=== PATIENT | male | born 1965 | race Caucasian/White ===

== ENCOUNTER 2023-03-12 16:16 | Inpatient (IN) | payer BC ==
[~2023-03-12] VITALS: Ht 182.9 cm; Wt 112.1 kg
[2023-03-12] MEDS ORDERED: PRED5TA PO (16:47)
[2023-03-12] MEDS ORDERED: OXYC10TA12 PO (16:47)
[2023-03-12] MEDS ORDERED: OMEP-173 PO (16:47)
[2023-03-12] MEDS ORDERED: ROSU10TA6 PO (16:47)
[2023-03-12] MEDS ORDERED: MAGN400C PO (16:47)
[2023-03-12] MEDS ORDERED: VITA200016 PO (16:47)
[2023-03-12] MEDS ORDERED: CALC-190 PO (16:47)
[2023-03-12] MEDS ORDERED: GABA-283 PO (16:47)
[2023-03-12] MEDS ORDERED: MORP-69 PO (16:47)
[2023-03-12] MEDS: predniSONE 5 MG TAB PO SCH (17:00)
[2023-03-12 17:17] LABS: VENOUS BASE EXCESS -2.4 (-2.0-2.0); VENOUS HCO3 21.6 MMOL/L (23.0-27.0); VENOUS O2 SATURATION 72.9 % (60.0-80.0); VENOUS PARTIAL PRESSURE CO2 33.4 mmHg (38.0-50.0); VENOUS PARTIAL PRESSURE O2 38.4 mmHg (30.0-50.0); VENOUS PH 7.429 UNITS (7.330-7.430); VENOUS STANDARD HCO3 22.2 MMOL/L; VENOUS TOTAL CO2 22.6 MMOL/L (24.0-28.0)
[2023-03-12 17:22] LABS: MEAN CORPUSCULAR HEMOGLOBIN 31.4 pg (27.0-33.0); MEAN CORPUSCULAR VOLUME 98.1 fl (80.0-96.0); PLATELET COUNT, AUTOMATED 148 10^3/uL (150-450); RED BLOOD COUNT 2.07 10^6/uL (4.30-6.10)
[2023-03-12 17:24] LABS: HEMATOCRIT 20.3 % (42.0-52.0); HEMOGLOBIN 6.5 g/dl (13.5-17.5)
[2023-03-12 17:35] LABS: LYMPHOCYTES 2 % (16-44); METAMYELOCYTES 2 % (0-0); MONOCYTES 4 % (0-5); MYELOCYTES 2 % (0-0); NEUTROPHILS 87 % (28-66)
[2023-03-12] MEDS ORDERED: NS 500 ML IV ONE (17:35)
[2023-03-12 17:36] LABS: ANISOCYTOSIS 1+; PLATELET ESTIMATE DECREASED (NORMAL)
[2023-03-12 17:37] LABS: POLYCHROMASIA 1+
[2023-03-12 17:43] LABS: CK-MB VALUE MASS 1.2 NG/ML (<3.6)
[2023-03-12] MEDS ORDERED: BALMEX CREAM 60GM EXT PRN ×2 (17:55→18:00)
[2023-03-12 18:18] LABS: ALBUMIN 1.7 G/DL (3.2-5.2); ALKALINE PHOSPHATASE 1048 U/L (46-116); ALT/SGPT 56 U/L (7.0-40); AST/SGOT 160 U/L (<34); BILIRUBIN,DIRECT 0.7 MG/DL (<0.4); BILIRUBIN,TOTAL 1.2 MG/DL (0.3-1.2); BLOOD UREA NITROGEN 27 MG/DL (9-23); CALCIUM LEVEL 6.7 MG/DL (8.5-10.1); CARBON DIOXIDE LEVEL 21 MMOL/L (20-31); CHLORIDE LEVEL 98 MMOL/L (98-107); CPK CREATINE PHOSPHOKINASE 248 U/L (46-171); CREATININE FOR GFR 0.62 MG/DL (0.70-1.30); GLOMERULAR FILTRATION RATE > 60.0 (>56); GLUCOSE, FASTING 105 MG/DL (60-100); MB/CK RELATIVE INDEX 0.48 (< OR =4); SODIUM LEVEL 131 MMOL/L (136-145); TOTAL PROTEIN 4.8 G/DL (5.7-8.2)
[2023-03-12] MEDS ORDERED: AZITHROMYCIN INJ 500 MG, VIAL MATE ADAPTER 1 EACH in NS 250 ML IV ONE (18:20)
[2023-03-12] MEDS ORDERED: cefTRIAXone SOD 1 GM in D5W MINI-BAG PLUS 50 ML IV ONE (18:20)
[2023-03-12] MEDS ORDERED: ISOVUE-370 76% 100ML VIAL As Ordered ONE (18:25)
[2023-03-12] MEDS ORDERED: MORPHINE 15 MG SA TAB PO ONE (19:25)
[2023-03-12] MEDS ORDERED: PERCOCET 5MG/325MG TAB PO ONE (19:25)
[2023-03-12] MEDS ORDERED: PROC10TA5 PO (19:38)
[2023-03-12] MEDS ORDERED: ASCO250T20 PO (19:39)
[2023-03-12] MEDS ORDERED: HOME MED LIST COMPLETE! XX SCH (19:40)
[2023-03-12 20:04] VITALS: BP 97/58
[2023-03-12 20:14] VITALS: BP 92/58
[2023-03-12 20:19] VITALS: BP 92/57
[2023-03-12] MEDS ORDERED: oxyCODONE 5MG TAB PO PRN (20:25)
[2023-03-12] MEDS ORDERED: ACETAMINOPHEN TAB 650MG DOSE (2X325MG) PO PRN (20:25)
[2023-03-12] MEDS: LevoFLOXacin 750 MG TABLET PO SCH (21:00)
[2023-03-12] MEDS: GABAPENTIN 100 MG CAP PO SCH (21:00)
[2023-03-13] VITALS (11 sets, daily range): BP systolic 98–107; BP diastolic 57–70
[2023-03-13 07:14] LABS: PERCENT SATURATION 37.8 % (19.7-50.0)
[2023-03-13 07:35] LABS: FERRITIN 5219.8 NG/ML (10.5-307.3)
[2023-03-13] MEDS: predniSONE 5 MG TAB PO SCH ×2 (08:07→16:45)
[2023-03-13] MEDS: MORPHINE 15 MG SA TAB PO SCH ×2 (08:07→20:20)
[2023-03-13] MEDS: ENOXAPARIN 40MG/0.4ML SYRINGE (J1650 PER 10MG) SC SCH (08:07)
[2023-03-13] MEDS: GABAPENTIN 100 MG CAP PO SCH ×4 (08:07→20:19)
[2023-03-13] MEDS: OMEPRAZOLE 20MG CAP PO SCH (08:07)
[2023-03-13 08:13] LABS: HEMATOCRIT 23.7 % (42.0-52.0); HEMOGLOBIN 7.9 g/dl (13.5-17.5); MEAN CORPUSCULAR HEMOGLOBIN 30.5 pg (27.0-33.0); MEAN CORPUSCULAR HGB CONC 33.3 g/dl (32.0-36.5); MEAN CORPUSCULAR VOLUME 91.5 fl (80.0-96.0); PLATELET COUNT, AUTOMATED 130 10^3/uL (150-450); RED BLOOD COUNT 2.59 10^6/uL (4.30-6.10); WHITE BLOOD COUNT 11.3 10^3/uL (4.0-10.0)
[2023-03-13 08:35] LABS: BLOOD UREA NITROGEN 19 MG/DL (9-23); CALCIUM LEVEL 6.8 MG/DL (8.5-10.1); CARBON DIOXIDE LEVEL 24 MMOL/L (20-31); CHLORIDE LEVEL 101 MMOL/L (98-107); CREATININE FOR GFR 0.54 MG/DL (0.70-1.30); GLOMERULAR FILTRATION RATE > 60.0 (>56); GLUCOSE, FASTING 87 MG/DL (60-100); POTASSIUM SERUM 3.9 MMOL/L (3.5-5.1); SODIUM LEVEL 135 MMOL/L (136-145)
[2023-03-13] MEDS: FUROSEMIDE 40MG/4ML VIAL IV SCH (09:09)
[2023-03-13 12:35] LABS: ALBUMIN 1.6 G/DL (3.2-5.2); ALKALINE PHOSPHATASE 984 U/L (46-116); ALT/SGPT 51 U/L (7.0-40); AST/SGOT 153 U/L (<34); BILIRUBIN,DIRECT 0.8 MG/DL (<0.4); BILIRUBIN,TOTAL 1.2 MG/DL (0.3-1.2); MAGNESIUM LEVEL 2.1 MG/DL (1.8-2.4); TOTAL PROTEIN 4.6 G/DL (5.7-8.2)
[2023-03-13] MEDS ORDERED: CALCIUM GLUCONATE 1,000 MG in D5W MINI-BAG PLUS 100 ML IV ONE (13:00)
[2023-03-13] MEDS: LevoFLOXacin 750 MG TABLET PO SCH (20:19)
[2023-03-14] VITALS (8 sets, daily range): BP systolic 74–111; BP diastolic 40–71
[2023-03-14 07:03] LABS: HEMATOCRIT 23.3 % (42.0-52.0); HEMOGLOBIN 7.7 g/dl (13.5-17.5); MEAN CORPUSCULAR HEMOGLOBIN 30.2 pg (27.0-33.0); MEAN CORPUSCULAR VOLUME 91.4 fl (80.0-96.0); PLATELET COUNT, AUTOMATED 132 10^3/uL (150-450); RED BLOOD COUNT 2.55 10^6/uL (4.30-6.10); WHITE BLOOD COUNT 9.7 10^3/uL (4.0-10.0)
[2023-03-14] MEDS: ENOXAPARIN 40MG/0.4ML SYRINGE (J1650 PER 10MG) SC SCH (08:09)
[2023-03-14] MEDS: FUROSEMIDE 40MG/4ML VIAL IV SCH (08:10)
[2023-03-14] MEDS: GABAPENTIN 100 MG CAP PO SCH ×4 (08:10→20:08)
[2023-03-14] MEDS: predniSONE 5 MG TAB PO SCH ×2 (08:10→17:08)
[2023-03-14] MEDS: MORPHINE 15 MG SA TAB PO SCH ×2 (08:10→20:08)
[2023-03-14] MEDS: OMEPRAZOLE 20MG CAP PO SCH (08:10)
[2023-03-14 08:13] LABS: ALBUMIN 1.7 G/DL (3.2-5.2); ALKALINE PHOSPHATASE 994 U/L (46-116); ALT/SGPT 54 U/L (7.0-40); AST/SGOT 182 U/L (<34); BILIRUBIN,TOTAL 1.2 MG/DL (0.3-1.2); BLOOD UREA NITROGEN 17 MG/DL (9-23); CALCIUM LEVEL 6.4 MG/DL (8.5-10.1); CARBON DIOXIDE LEVEL 24 MMOL/L (20-31); CHLORIDE LEVEL 100 MMOL/L (98-107); CREATININE FOR GFR 0.59 MG/DL (0.70-1.30); GLOMERULAR FILTRATION RATE > 60.0 (>56); GLUCOSE, FASTING 81 MG/DL (60-100); SODIUM LEVEL 134 MMOL/L (136-145); TOTAL PROTEIN 4.8 G/DL (5.7-8.2)
[2023-03-14 08:50] LABS: ATYPICAL LYMPH 5 % (0-5); EOSINOPHILS 1 % (0-3); LYMPHOCYTES 3 % (16-44); METAMYELOCYTES 5 % (0-0); MONOCYTES 2 % (0-5); MYELOCYTES 4 % (0-0); NEUTROPHILS 76 % (28-66)
[2023-03-14 08:51] LABS: ANISOCYTOSIS 4+
[2023-03-14 08:52] LABS: HYPOCHROMASIA 2+
[2023-03-14 08:53] LABS: PLATELET ESTIMATE NORMAL (NORMAL)
[2023-03-14 11:42] LABS: HEMATOCRIT 25.8 % (42.0-52.0); HEMOGLOBIN 8.6 g/dl (13.5-17.5); MEAN CORPUSCULAR HEMOGLOBIN 30.1 pg (27.0-33.0); MEAN CORPUSCULAR HGB CONC 33.3 g/dl (32.0-36.5); MEAN CORPUSCULAR VOLUME 90.2 fl (80.0-96.0); PLATELET COUNT, AUTOMATED 148 10^3/uL (150-450); RED BLOOD COUNT 2.86 10^6/uL (4.30-6.10); WHITE BLOOD COUNT 11.2 10^3/uL (4.0-10.0)
[2023-03-14 12:01] LABS: BLOOD UREA NITROGEN 17 MG/DL (9-23); CALCIUM LEVEL 6.9 MG/DL (8.5-10.1); CARBON DIOXIDE LEVEL 25 MMOL/L (20-31); CHLORIDE LEVEL 99 MMOL/L (98-107); CREATININE FOR GFR 0.61 MG/DL (0.70-1.30); GLOMERULAR FILTRATION RATE > 60.0 (>56); GLUCOSE, FASTING 98 MG/DL (60-100); POTASSIUM SERUM 3.2 MMOL/L (3.5-5.1); SODIUM LEVEL 132 MMOL/L (136-145)
[2023-03-14] MEDS ORDERED: POTASSIUM CHLORIDE 10MEQ SR TABLET PO ONE (13:20)
[2023-03-14] MEDS: oxyCODONE 5MG TAB PO PRN ×2 (14:06→19:23)
[2023-03-14] MEDS: PIPERACILLIN/TAZOBACTAM SOD 3.375 GM in D5W MINI-BAG PLUS 50 ML IV SCH (17:08)
[2023-03-14] MEDS: LevoFLOXacin 750 MG TABLET PO SCH (20:08)
[2023-03-14] MEDS ORDERED: FUROSEMIDE 40MG/4ML VIAL IV SCH (21:00)
[2023-03-14] MEDS ORDERED: NS 500 ML IV ONE (22:25)
[2023-03-15] VITALS (11 sets, daily range): BP systolic 100–118; BP diastolic 60–65; O2SAT 93–98
[2023-03-15] MEDS: PIPERACILLIN/TAZOBACTAM SOD 3.375 GM in D5W MINI-BAG PLUS 50 ML IV SCH ×5 (00:14→22:33)
[2023-03-15 06:20] LABS: HEMATOCRIT 24.2 % (42.0-52.0); HEMOGLOBIN 7.8 g/dl (13.5-17.5); MEAN CORPUSCULAR HEMOGLOBIN 29.8 pg (27.0-33.0); MEAN CORPUSCULAR HGB CONC 32.2 g/dl (32.0-36.5); MEAN CORPUSCULAR VOLUME 92.4 fl (80.0-96.0); PLATELET COUNT, AUTOMATED 123 10^3/uL (150-450); RED BLOOD COUNT 2.62 10^6/uL (4.30-6.10); WHITE BLOOD COUNT 10.9 10^3/uL (4.0-10.0)
[2023-03-15 07:01] LABS: LYMPHOCYTES 10 % (16-44); METAMYELOCYTES 1 % (0-0); MONOCYTES 6 % (0-5); MYELOCYTES 5 % (0-0); NEUTROPHILS 76 % (28-66); PLATELET ESTIMATE DECREASED (NORMAL); POLYCHROMASIA 1+
[2023-03-15 07:02] LABS: ANISOCYTOSIS 2+; POIKILOCYTOSIS 1+
[2023-03-15 07:23] LABS: ALBUMIN 1.6 G/DL (3.2-5.2); ALKALINE PHOSPHATASE 1027 U/L (46-116); ALT/SGPT 46 U/L (7.0-40); AST/SGOT 154 U/L (<34); BILIRUBIN,TOTAL 1.7 MG/DL (0.3-1.2); BLOOD UREA NITROGEN 25 MG/DL (9-23); CALCIUM LEVEL 6.1 MG/DL (8.5-10.1); CARBON DIOXIDE LEVEL 24 MMOL/L (20-31); CHLORIDE LEVEL 100 MMOL/L (98-107); CREATININE FOR GFR 0.93 MG/DL (0.70-1.30); GLOMERULAR FILTRATION RATE > 60.0 (>56); GLUCOSE, FASTING 87 MG/DL (60-100); POTASSIUM SERUM 3.8 MMOL/L (3.5-5.1); SODIUM LEVEL 135 MMOL/L (136-145); TOTAL PROTEIN 4.6 G/DL (5.7-8.2)
[2023-03-15] MEDS: IPRATROPIUM 0.5MG/ALBUTEROL 2.5MG INH SOL UD 3ML (DUONEB) NEB SCH ×4 (07:28→20:11)
[2023-03-15] MEDS: methylPREDNISolone 125MG 2ML VIAL IV SCH ×3 (08:41→20:50)
[2023-03-15] MEDS: ENOXAPARIN 40MG/0.4ML SYRINGE (J1650 PER 10MG) SC SCH (08:41)
[2023-03-15] MEDS: OMEPRAZOLE 20MG CAP PO SCH (08:41)
[2023-03-15] MEDS: GABAPENTIN 100 MG CAP PO SCH ×4 (08:41→20:51)
[2023-03-15] MEDS: MORPHINE 15 MG SA TAB PO SCH ×2 (08:42→20:53)
[2023-03-15] MEDS ORDERED: FUROSEMIDE 40MG/4ML VIAL IV SCH (09:00)
[2023-03-15 10:17] LABS: ABG BASE EXCESS -0.7 (-2.0-2.0); ABG HCO3 24.3 MMOL/L (22.0-26.0); ABG O2 SATURATION 69.4 % (95.0-99.0); ABG PARTIAL PRESSURE CO2 41.9 mmHg (35.0-45.0); ABG STANDARD HCO3 23.4 MMOL/L. (22.0-26.0); ABG TOTAL CO2 25.6 MMOL/L (22.0-29.0); ABG pH (ARTERIAL) 7.382 UNITS (7.350-7.450)
[2023-03-15 12:20] LABS: HEMOGLOBIN 8.5 g/dl (13.5-17.5); MEAN CORPUSCULAR HEMOGLOBIN 30.5 pg (27.0-33.0); MEAN CORPUSCULAR HGB CONC 32.7 g/dl (32.0-36.5); MEAN CORPUSCULAR VOLUME 93.2 fl (80.0-96.0); PLATELET COUNT, AUTOMATED 135 10^3/uL (150-450); RED BLOOD COUNT 2.79 10^6/uL (4.30-6.10); WHITE BLOOD COUNT 11.7 10^3/uL (4.0-10.0)
[2023-03-15 14:32] LABS: ABG BASE EXCESS -0.7 (-2.0-2.0); ABG HCO3 22.3 MMOL/L (22.0-26.0); ABG O2 SATURATION 96.2 % (95.0-99.0); ABG PARTIAL PRESSURE CO2 30.3 mmHg (35.0-45.0); ABG PARTIAL PRESSURE O2 78.3 mmHg (75.0-100.0); ABG STANDARD HCO3 23.8 MMOL/L. (22.0-26.0); ABG TOTAL CO2 23.2 MMOL/L (22.0-29.0); ABG pH (ARTERIAL) 7.484 UNITS (7.350-7.450)
[2023-03-15] MEDS: FUROSEMIDE 40MG/4ML VIAL IV SCH (18:10)
[2023-03-15] MEDS: oxyCODONE 5MG TAB PO PRN (20:52)
[2023-03-16] VITALS (21 sets, daily range): BP systolic 90–112; BP diastolic 52–70; O2SAT 92–96
[2023-03-16] MEDS: methylPREDNISolone 125MG 2ML VIAL IV SCH ×4 (02:52→20:28)
[2023-03-16] MEDS: PIPERACILLIN/TAZOBACTAM SOD 3.375 GM in D5W MINI-BAG PLUS 50 ML IV SCH ×4 (04:57→23:13)
[2023-03-16 05:38] LABS: HEMATOCRIT 23.6 % (42.0-52.0); HEMOGLOBIN 7.9 g/dl (13.5-17.5); MEAN CORPUSCULAR HEMOGLOBIN 30.5 pg (27.0-33.0); MEAN CORPUSCULAR HGB CONC 33.5 g/dl (32.0-36.5); MEAN CORPUSCULAR VOLUME 91.1 fl (80.0-96.0); PLATELET COUNT, AUTOMATED 124 10^3/uL (150-450); RED BLOOD COUNT 2.59 10^6/uL (4.30-6.10); WHITE BLOOD COUNT 10.2 10^3/uL (4.0-10.0)
[2023-03-16] MEDS: IPRATROPIUM 0.5MG/ALBUTEROL 2.5MG INH SOL UD 3ML (DUONEB) NEB SCH ×4 (06:12→20:05)
[2023-03-16 06:40] LABS: ANISOCYTOSIS 3+; LYMPHOCYTES 3 % (16-44); METAMYELOCYTES 3 % (0-0); MONOCYTES 5 % (0-5); MYELOCYTES 2 % (0-0); NEUTROPHILS 84 % (28-66); PLATELET ESTIMATE DECREASED (NORMAL)
[2023-03-16 06:53] LABS: ALBUMIN 1.8 G/DL (3.2-5.2); ALKALINE PHOSPHATASE 1011 U/L (46-116); ALT/SGPT 57 U/L (7.0-40); AST/SGOT 195 U/L (<34); BILIRUBIN,TOTAL 1.8 MG/DL (0.3-1.2); BLOOD UREA NITROGEN 39 MG/DL (9-23); CALCIUM LEVEL 6.5 MG/DL (8.5-10.1); CARBON DIOXIDE LEVEL 25 MMOL/L (20-31); CHLORIDE LEVEL 96 MMOL/L (98-107); GLOMERULAR FILTRATION RATE > 60.0 (>56); GLUCOSE, FASTING 134 MG/DL (60-100); MAGNESIUM LEVEL 1.9 MG/DL (1.8-2.4); POTASSIUM SERUM 3.5 MMOL/L (3.5-5.1); SODIUM LEVEL 134 MMOL/L (136-145); TOTAL PROTEIN 4.9 G/DL (5.7-8.2)
[2023-03-16] MEDS: FUROSEMIDE 40MG/4ML VIAL IV SCH (09:00)
[2023-03-16] MEDS: GABAPENTIN 100 MG CAP PO SCH ×4 (09:32→20:27)
[2023-03-16] MEDS: MORPHINE 15 MG SA TAB PO SCH ×2 (09:32→20:28)
[2023-03-16] MEDS: OMEPRAZOLE 20MG CAP PO SCH (09:33)
[2023-03-16 09:46] LABS: LDH LACTATE DEHYDROGENASE > 4500 U/L (120-246)
[2023-03-16 12:31] LABS: ABG BASE EXCESS -1.4 (-2.0-2.0); ABG HCO3 20.7 MMOL/L (22.0-26.0); ABG O2 SATURATION 94.8 % (95.0-99.0); ABG PARTIAL PRESSURE CO2 26.1 mmHg (35.0-45.0); ABG PARTIAL PRESSURE O2 69.6 mmHg (75.0-100.0); ABG STANDARD HCO3 23.2 MMOL/L. (22.0-26.0); ABG TOTAL CO2 21.5 MMOL/L (22.0-29.0); ABG pH (ARTERIAL) 7.518 UNITS (7.350-7.450)
[2023-03-16] MEDS: MAG SULF 1GM/100ML (MAG RUN) 1 GM in IV 1 EA IV SCH ×2 (12:44→14:22)
[2023-03-16] MEDS ORDERED: MIRALAX *UNIT DOSE* 17GM PACKET PO PRN (13:20)
[2023-03-17] VITALS (13 sets, daily range): BP systolic 83–117; BP diastolic 51–67
[2023-03-17] MEDS: methylPREDNISolone 125MG 2ML VIAL IV SCH ×2 (03:28→08:06)
[2023-03-17] MEDS: PIPERACILLIN/TAZOBACTAM SOD 3.375 GM in D5W MINI-BAG PLUS 50 ML IV SCH (05:18)
[2023-03-17 05:50] LABS: HEMATOCRIT 24.3 % (42.0-52.0); HEMOGLOBIN 7.9 g/dl (13.5-17.5); MEAN CORPUSCULAR HEMOGLOBIN 29.7 pg (27.0-33.0); MEAN CORPUSCULAR HGB CONC 32.5 g/dl (32.0-36.5); MEAN CORPUSCULAR VOLUME 91.4 fl (80.0-96.0); PLATELET COUNT, AUTOMATED 154 10^3/uL (150-450); RED BLOOD COUNT 2.66 10^6/uL (4.30-6.10); WHITE BLOOD COUNT 13.7 10^3/uL (4.0-10.0)
[2023-03-17 06:20] LABS: ALKALINE PHOSPHATASE 991 U/L (46-116); ALT/SGPT 64 U/L (7.0-40); AST/SGOT 234 U/L (<34); BLOOD UREA NITROGEN 50 MG/DL (9-23); CALCIUM LEVEL 6.4 MG/DL (8.5-10.1); CARBON DIOXIDE LEVEL 24 MMOL/L (20-31); CHLORIDE LEVEL 98 MMOL/L (98-107); CREATININE FOR GFR 1.28 MG/DL (0.70-1.30); GLOMERULAR FILTRATION RATE > 60.0 (>56); GLUCOSE, FASTING 142 MG/DL (60-100); MAGNESIUM LEVEL 2.2 MG/DL (1.8-2.4); POTASSIUM SERUM 3.5 MMOL/L (3.5-5.1); SODIUM LEVEL 138 MMOL/L (136-145); TOTAL PROTEIN 5.1 G/DL (5.7-8.2)
[2023-03-17 07:16] LABS: ANISOCYTOSIS 4+; LYMPHOCYTES 5 % (16-44); METAMYELOCYTES 1 % (0-0); MONOCYTES 3 % (0-5); MYELOCYTES 3 % (0-0); NEUTROPHILS 81 % (28-66); PLATELET ESTIMATE NORMAL (NORMAL)
[2023-03-17 07:17] LABS: OVALOCYTES 1+
[2023-03-17] MEDS: IPRATROPIUM 0.5MG/ALBUTEROL 2.5MG INH SOL UD 3ML (DUONEB) NEB SCH ×4 (07:40→19:32)
[2023-03-17] MEDS: OMEPRAZOLE 20MG CAP PO SCH (08:06)
[2023-03-17] MEDS: GABAPENTIN 100 MG CAP PO SCH (08:06)
[2023-03-17] MEDS: MORPHINE 15 MG SA TAB PO SCH ×2 (08:06→20:22)
[2023-03-17] MEDS ORDERED: LR 1,000 ML IV ONE (08:50)
[2023-03-17] MEDS ORDERED: DIGOXIN INJ 0.5 MG/2 ML AMP As Ordered ONE (09:05)
[2023-03-17] MEDS ORDERED: DIGOXIN INJ 0.5 MG/2 ML AMP IV ONE (09:10)
[2023-03-17] MEDS ORDERED: AMIODARONE HCL 150 MG in IV 1 EA IV STA (10:22)
[2023-03-17] MEDS ORDERED: ALPRAZolam 0.5 MG TAB PO SCH (11:30)
[2023-03-17] MEDS ORDERED: MORPHINE 4 MG/ML 1ML VIAL IV PRN (12:10)
[2023-03-17] MEDS ORDERED: MORPHINE 2 MG/ML 1ML VIAL IV PRN (12:10)
[2023-03-17] MEDS: MORPHINE 4 MG/ML 1ML VIAL IV PRN (12:12)
[2023-03-17] MEDS: oxyCODONE 5MG TAB PO PRN (12:51)
[2023-03-17] MEDS ORDERED: ATROPINE SULFATE 1% OPHTH SOLN 2ML BTL SL PRN (13:40)
[2023-03-17] MEDS ORDERED: SCOPOLAMINE 1MG TRANSDERMAL PATCH TOP PRN (13:40)
[2023-03-18] MEDS: LORazepam 2 MG/ML 1ML VIAL IV PRN ×5 (02:28→21:16)
[2023-03-18] MEDS: MORPHINE 4 MG/ML 1ML VIAL IV PRN ×4 (02:29→23:13)
[2023-03-18] MEDS: IPRATROPIUM 0.5MG/ALBUTEROL 2.5MG INH SOL UD 3ML (DUONEB) NEB SCH ×4 (08:00→20:00)
[2023-03-18] MEDS: MORPHINE 15 MG SA TAB PO SCH ×2 (09:02→20:50)
[2023-03-18] MEDS ORDERED: MORPHINE 2 MG/ML 1ML VIAL IV ONE (18:45)
[2023-03-19] MEDS: LORazepam 2 MG/ML 1ML VIAL IV PRN ×2 (00:29→02:43)
[2023-03-19] MEDS: MORPHINE 4 MG/ML 1ML VIAL IV PRN ×4 (02:44→14:36)
[2023-03-19] MEDS: IPRATROPIUM 0.5MG/ALBUTEROL 2.5MG INH SOL UD 3ML (DUONEB) NEB SCH ×3 (07:49→15:33)
[2023-03-19] MEDS: MORPHINE 15 MG SA TAB PO SCH (09:00)
[2023-04-28] MEDS ORDERED: DIGOXIN INJ 0.5 MG/2 ML AMP IV SCH (15:00)
== END 2023-03-19 16:00 | disposition expired | DRG 133 ==
LOC: M ED 16:16 → OBSVTOIN 20:18 → M ED INP 20:18 → M PCU 23:42
PROVIDERS: ADMIT Internal Medicine; ATTEND Student in an Organized Health Care Education/Training Program
DX: J96.01 Acute respiratory failure with hypoxia (principal); E43 Unspecified severe protein-calorie malnutrition; J15.6 Pneumonia due to other Gram-negative bacteria; N17.9 Acute kidney failure, unspecified; C78.00 Secondary malignant neoplasm of unspecified lung; C78.7 Secondary malignant neoplasm of liver and intrahepatic bile duct; E83.42 Hypomagnesemia; E87.20 Acidosis, unspecified; C79.51 Secondary malignant neoplasm of bone; E83.51 Hypocalcemia; D64.81 Anemia due to antineoplastic chemotherapy; E87.5 Hyperkalemia; R04.2 Hemoptysis; D62 Acute posthemorrhagic anemia; E87.1 Hypo-osmolality and hyponatremia; I48.91 Unspecified atrial fibrillation; C61 Malignant neoplasm of prostate; B97.29 Other coronavirus as the cause of diseases classified elsewhere; D63.8 Anemia in other chronic diseases classified elsewhere; E87.6 Hypokalemia; I10 Essential (primary) hypertension; K21.9 Gastro-esophageal reflux disease without esophagitis; R74.01 Elevation of levels of liver transaminase levels; Z79.899 Other long term (current) drug therapy